=== PATIENT | female | born 1985 | race Caucasian/White ===

== ENCOUNTER 2021-07-01 19:58 | Emergency (ER) | payer SELFPAY ==
[~2021-07-01] VITALS: Ht 165.1 cm; Wt 66.8 kg
[~2021-07-01 19:58] MED LIST: GABAPENTIN300 MG; MAGNESIUM500 MG PO; VITAFOL-OB+DHA1 EACH PO
--- OUTSIDE RECORDS SUMMARY | 2021-07-01 20:00 | XMS ---
PreManage Notification: [employer] Events No recent Security Events currently on file CRITERIA MET - ED - Positive COVID-19 Lab Result - [facility] C[facility] PROVIDERS There are no care providers on record at this time. Kamala has no Care Guidelines for this patient. [facility] VISIT COUNT (12 MO.) 1 SHARON Garrido TOTAL 1 NOTE: Visits indicate total known visits. ED/C VISIT TRACKING (12 MO.) 07/01/2021 19:59 SHARON Marcial [place] TYPE: Emergency COMPLAINT: - ALLERGIC REACTION INPATIENT VISIT TRACKING (12 MO.) No inpatient visits to display in this time frame [email or web address]
[2021-07-01] MEDS ORDERED: WELLBUTRIN XL150 MG PO (20:17)
[2021-07-01] MEDS ORDERED: ZYRTEC10 MG PO (20:55)
== END 2021-07-01 21:35 | disposition home or self-care (01) ==
LOC: ED 19:58
DX: L50.0 Allergic urticaria (principal); L27.0 Generalized skin eruption due to drugs and medicaments taken internally; T43.295A Adverse effect of other antidepressants, initial encounter
CPT/HCPCS: 96374; 96375; 99283-25; J2930